=== PATIENT | female | born 1945 | race Caucasian/White ===

== ENCOUNTER 2017-01-29 07:30 | Day surgery (SDC) | payer MEDICARE ==
--- NOTE | 2017-01-11 09:58 | HP ---
Chief Complaint - Chief Complaint Date of Service: 01/11/17 Chief Complaint: need a colonoscopy again History of Present Illness: 71 year old female with her last colonoscopy being over 11 years ago. She thinks she may have had polyps, but uncertain and no report found. No changes in bowels (occasionally constipated) and no blood in stools. No family history of colon cancer. - Patient's Past Medical History Patient History - Medical: Arthritis, Hypothyroidism, Obesity Patient History - Cardiac/Respiratory: Asthma, CHF, Hypertension, Hyperlipidemia Patient History - Cancer: No Hx of Cancer Patient History - Surgical Procedures: Cholecystectomy, Hysterectomy - with oophorectomy for fibroids, T & A, Other - breast biopsy, Orthopedic - arthroscopy right knee Patient History - Other: None LMP (females 10-50): Menopausal - Family History Family History:: no untoward family reactions to anesthesia, no familial bleeding tendencies, no family history of premature - Family History Father Family History - Medical: - sCOPD Family History - Cardiac/Respiratory: COPD Mother Family History - Medical: - CVA/stroke/HTN Family History - Cardiac/Respiratory: CVA/Stroke, Hypertension Brother Family History - Cardiac/Respiratory: Myocardial Infarction Sister Family History - Cardiac/Respiratory: Deep Vein Thrombosis, Hypertension - Social History Living Situations: spouse Abuse History: No History of abuse Psych History: No pertinent hx Alcohol Use: none Drug Use: none - Immunizations Immunizations Up to Date: Yes Hx Pneumococcal Vaccination: More Information Required to Determine History of Influenza Vaccine: Yes - 2014 Review Of Systems (GEN) - Review of Systems Generalized/Overall Review: Present: Fatigue. Absent: Weakness, Chills, Fever, Malaise, Weight loss EENTM: Absent: Eye Pain, Double Vision, Throat Pain, Throat Swelling Respiratory: Present: Other - uses CPAP. Absent: Cough, Shortness of Breath, Stridor, Wheezing Cardiac: Present: Edema. Absent: Chest Pain, Palpitations, Syncope Abdominal: Present: Constipation. Absent: Nausea, Vomiting, Abdominal Pain, Diarrhea, Bright blood from rectum Genitourinary: Absent: Burning, Itching, Urgency, Frequency Musculoskeletal: Present: Joint Pain, Joint Swelling Neurological: Absent: Headache, Anxiety, Depressed, Emotional Problems, Parasthesia Skin: Absent: Dryness, Lesions, Rash Immunizations: IMMUNIZATION HX Immunizations Up to Date Yes History of Influenza Vaccine Yes Allergies/Adverse Reactions: Allergies Allergy/AdvReac Type Severity Reaction Status Date / Time Penicillins Allergy Severe Other Verified 03/05/16 19:27 Home Medications: HOME MEDICATIONS Albuterol Sulfate [Proair Hfa] 2 puff IH QID PRN 05/31/14 [Last Taken 05/30/14 12:00] Levothyroxine Sodium [Synthroid] 150 mcg PO DAILY 05/31/14 [Last Taken 05/31/14 08:00] Ascorbic Acid/Vitamin E/Biotin [Hair Skin Nails-Biotin Gummies] 1 each PO DAILY 03/05/16 [Last Taken Unknown] Cholecalciferol (Vitamin D3) [Vitamin D3] 5,000 unit PO DAILY 03/05/16 [Last Taken Unknown] Mometasone Furoate 1 appl TP BID PRN 03/05/16 [Last Taken Unknown] Pravastatin Sodium [Pravachol] 40 mg PO DAILY@1700 03/05/16 [Last Taken Unknown] Losartan Potassium [Cozaar] 50 mg PO HS #30 tab 03/06/16 [Last Taken Unknown] Exam - Exam Vital Signs: Vital Signs - Last Taken Temp 36.7 C 01/11/17 Pulse 80 01/11/17 Resp BP 135/75 01/11/17 Pulse Ox 5'2 wt 275#s Constitutional: Present: Alert, Oriented x3, Cooperative, No distress, Overweight ENT Exam: Present: normal ENT inspection, hearing grossly normal Eye Exam: bilateral eye: normal inspection Breasts: Present: Exam deferred Respiratory: Present: lungs clear, normal breath sounds, no respiratory distress , no accessory muscle use Cardiovascular/Chest: Present: regular rate, rhythm, no chest tenderness, no gallop, no JVD, no murmur Abdomen: Present: Normal bowel sounds, soft, nontender, obese /Rectal: Present: Exam deferred Extremity: Present: non-tender Skin Exam: Present: normal color, warm/dry, no cyanosis Neurologic: Present: no motor/sensory deficits, alert, normal mood/affect, abnormal gait Appearance: Present: appropriate appearance, appropriate insight, neat, no memory impairment, denies illness Eye contact: Present: cooperative, good eye contact, normal speech Thoughts: Present: normal thought pattern, no apparent hallucination Assessment/Plan - Narrative Narrative: Discussed the risks and benefits for a colonoscopy. URSULAEP discussed, procedure reviewed. Anesthesia discussed. Need for ride and follow up also discussed. Scheduled for early January. - Assessment/Plan (1) Screening for colon cancer Problem: Acute (2) Asthma in adult Problem: Chronic (3) Hypertension Problem: Chronic (4) Morbid obesity Problem: Chronic Qualifiers: (5) Obstructive sleep apnea on CPAP Problem: Chronic
[~2017-01-29 07:30] MED LIST: RINGER'S SOLUTION,LACTATED 1,000 ML IV PRN
--- OUTSIDE RECORDS SUMMARY | 2017-01-29 07:33 | XMS REPORT | Continuity of Care Document ---
:1945 Author Organization [facility] ([facility]) Address [address] [place] [address] Phone [phone] Care Team Providers Name Role Phone Cheyenne Erickson Primary Care Provider [phone] Source Comments This disclosure is being made pursuant to the Care Everywhere program, applicable federal and state laws, and may not contain all informaitonavailable regarding this patient.[facility] ([facility]) Active Allergies and Adverse Reactions Allergen Noted Date Severity Reactions Comments Penicillin G 04/08/2010 OTHER Passed out. Current Medications Prescription Sig. Disp. Refills Start Date End Date Status AMINO Take 1 Tab by mouth Active ACIDS/MULTIVITS-MIN daily. ([id number] NO ACIDS PO) GLUCOSAMINE Take 1 Tab by mouth Active HCL/CHONDRO PULIDO A daily. (JOINT PAIN FORMULA PO) levothyroxine Take 100 mcg by mouth Active (SYNTHROID) 100 mcg every morning before tablet breakfast. ALPRAZolam (XANAX) 0.5 Take 0.5 mg by mouth Active mg tablet daily. OMEGA-3/DHA/EPA/FISH Take 1 Tab by mouth Active OIL (OMEGA ESSENTIALS daily. PO) PROCYAN OLIG/UBI/VIT Take 1 Tab by mouth Active A/HB#155 (PYCNOGENOL daily. COMPLEX PO) Coenzyme Q10 (CO Q-10) Take 1 Cap by mouth Active 100 mg Cap daily. docusate (COLACE) 100 Take 1 Cap by mouth 2 30 Cap 1 05/18/2010 Active mg capsule times daily. Indications: Constipation HYDROmorphone Take 1-2 Tabs by 50 Tab 0 05/18/2010 Active (DILAUDID) 2 mg tablet mouth every 4 hours as needed. Indications: Pain sennosides (SENOKOT) Take 1 Tab by mouth 30 Tab 1 05/18/2010 Active 8.6 mg tablet daily. Indications: Bowel Evacuation, Constipation amLODIPine (NORVASC) 5 Take 1 Tab by mouth 30 Tab 11 05/18/2010 Active mg tablet daily. Indications: Hypertension ciprofloxacin (CIPRO) Take 2 Tabs by mouth 10 Tab 0 05/18/2010 Active 250 mg tablet every 12 hours. Indications: Skin and Skin Structure Infection Active Problems Problem Noted Date Gall bladder stones 04/30/2010 Social History Tobacco Use Types Packs/Day Years Used Date Never Smoker Alcohol Use Drinks/Week oz/Week Comments No Last Filed Vital Signs Vital Sign Reading Time Taken Blood Pressure 200/85 05/18/2010 4:00 PM CDT Pulse 64 05/18/2010 4:00 PM CDT Temperature 36.8 C (98.2 F) 05/18/2010 4:00 PM CDT Respiratory Rate 12 05/18/2010 4:00 PM CDT Height 1.651 m (5' 5") 05/15/2010 2:08 PM CDT Weight 129.411 kg (285 lb 4.8 oz) 05/16/2010 10:00 AM CDT Body Mass Index 47.48 05/16/2010 10:00 AM CDT Oxygen Saturation 91% 05/18/2010 4:00 PM CDT Plan of Care Health Maintenance Due Date Last Done Comments HCV Screening 1945 Hepatitis B Vaccine (1 of 3 - Primary Series) 1945 Tdap Vaccine 1957 Lipid Disorder Screening 1964 Td Vaccine 1964 Mammogram 1986 Colonoscopy 08/06/1996 Zoster Vaccine 2006 Osteoporosis Screening (DXA Bone Density) 2011 Pneumococcal Vaccine (1 of 2 - PCV13) 2011 Influenza Vaccine: Seasonal (#1) 03/30/2016 Results from Last 3 Months Not on file
[2017-01-29] MEDS ORDERED: RINGER'S SOLUTION,LACTATED 1,000 ML IV ONE ×2 (08:40)
[2017-01-29] MEDS ORDERED: RINGER'S SOLUTION,LACTATED 1,000 ML IV PRN (09:36)
--- NOTE | 2017-01-29 09:40 | OR ---
Operative Report - Dictated Report Narrative: DATE OF PROCEDURE: 01/29/2017 PREOPERATIVE DIAGNOSIS: #1 Screening colonoscopy POSTOPERATIVE DIAGNOSIS: #1 Screening colonoscopy #2 polyp of right colon pending final pathology #3 polyp at 30 cm pending final pathology OPERATION: Colonoscopy with polypectomy X2 SURGEON: Ariel Mina M.D. FACS ANESTHESIA : Nissa Hall CRNA sedation INDICATIONS: This is a 71 year old female who presents for a screening colonoscopy. I have discussed the risks, benefits, indications, and contraindications for colonoscopy with the possibility of biopsy and/or polypectomy. She understands, agrees, and wishes to proceed. She has undergone a SUPREP and has tolerated it well. PROCEDURE: The patient was brought to the operating theater and placed into the left lateral decubitus position. The patient underwent sedation per anesthesia , and a digital rectal exam was performed. This was noted to be unremarkable. The patient was noted to have no internal or external hemorrhoids. The Olympus video colonoscope was introduced and advanced into the rectum. The rectum was normal in appearance. The scope was then advanced through the sigmoid, where no diverticular disease was noted. (there were some mild indentation snare vessels consistent with very early signs of diverticulosis). There was a small raised polyp at 30 cm, a picture was taken, it was removed with the cold snare, and retrieved via the polyp trap. There was approximate 5 mm in width. The scope was then advanced to the cecum using standard reduction techniques. The appendiceal orifice was noted. The ileocecal valve was noted. The prep appeared to be excellent with a Shallotte prep score of 9. There was a small pedunculated, less than 1 cm polyp noted in the right colon, and after pictures taken, it was removed with the cold snare and retrieved via the polyp trap. The scope was withdrawn slowly as the ascending, transverse, descending, and sigmoid colon were examined in a circumferential fashion. The scope was brought back into the rectum where it was retroflexed in the lower rectum was examined. The air was decompressed, and the scope was then removed. Withdrawal time was 20 minutes, however approximately 5-6 minutes were spent with polypectomy in the right colon. POSTOPERATIVE CONDITION: The patient was awakened and taken to the ambulatory surgery center in good condition. No complications were encountered. FINDINGS: 2 polyps one at 30 cm , one in right colon. Specimens: two EBL: 0 The findings were discussed with the patient and their family. I recommend a follow-up colonoscopy in 5 years for screening purposes. We will call in 48 hours with the biopsy results.
[2017-01-29 10:31] VITALS: BP 167/76
== END 2017-01-29 07:31 | disposition home or self-care (01) ==
LOC: AMB 07:30
PROVIDERS: ATTEND Surgery
PROC: 0DBE8ZX Excision of Large Intestine, Via Natural or Artificial Opening Endoscopic, Diagnostic (ICD-10-PCS; 2017-01-29)
PROC: 0DBF8ZX Excision of Right Large Intestine, Via Natural or Artificial Opening Endoscopic, Diagnostic (ICD-10-PCS; principal; 2017-01-29 08:50)
DX: Z12.11 Encounter for screening for malignant neoplasm of colon (principal); K63.5 Polyp of colon; I11.0 Hypertensive heart disease with heart failure; I50.9 Heart failure, unspecified; E78.5 Hyperlipidemia, unspecified; E03.9 Hypothyroidism, unspecified; J45.909 Unspecified asthma, uncomplicated; E66.9 Obesity, unspecified; Z68.43 Body mass index [BMI] 50.0-59.9, adult